=== PATIENT | male | born 1945 | race Hispanic/Latino ===

== ENCOUNTER 2018-12-09 07:28 | Observation (INO) | payer MEDICARE ==
[2018-12-09] MEDS ORDERED: ECOTRIN PO NR (07:44)
[2018-12-09] MEDS ORDERED: NACL 0.9% 500 ML 500 ML IV SCH (08:00)
[2018-12-09] MEDS ORDERED: ECOTRIN PO ONE (08:01)
[2018-12-09] MEDS ORDERED: NACL 0.9% 500 ML 500 ML ONE (08:01)
[2018-12-09 08:31] LABS: Basophils % (Auto) 0.9 % (0.0-1.8); Eosinophils # (Auto) 0.2 K/mm3 (0.0-0.4); Eosinophils % (Auto) 3.8 % (0.0-4.3); Hematocrit 39.2 % (35.5-45.6); Hemoglobin 12.9 gm/dl (11.8-15.2); Lymphocytes # (Auto) 1.8 K/mm3 (1.2-5.4); Mean Corpuscular HGB Conc 33 % (32-34); Mean Corpuscular Volume 82 fl (84-94); Monocytes # (Auto) 0.5 K/mm3 (0.0-0.8); Monocytes % (Auto) 9.3 % (0.0-7.3); Platelet Count 263 K/mm3 (140-440); Red Blood Count 4.77 M/mm3 (3.65-5.03); Red Cell Distribution Width 15.3 % (13.2-15.2)
[2018-12-09 08:54] LABS: INR 0.95 (0.87-1.13); Partial Thromboplastin Time 28.7 Sec. (24.2-36.6)
[2018-12-09] MEDS ORDERED: CALAN ONE (08:58)
[2018-12-09] MEDS ORDERED: SUBLIMAZE ONE (08:58)
[2018-12-09] MEDS ORDERED: VERSED ONE (08:58)
[2018-12-09] MEDS ORDERED: HEPARIN/NS 5000 UNIT/500ML(CATH LAB) 1,000 ML IR ONE (08:58)
[2018-12-09] MEDS ORDERED: NITROGLYCERIN SYRINGE 3 ML ONE (08:59)
[2018-12-09] MEDS ORDERED: XYLOCAINE 2% INFILTRATI ONE (08:59)
[2018-12-09 09:02] LABS: BUN/Creatinine Ratio 26; Blood Urea Nitrogen 18 mg/dL (9-20); Calcium 8.7 mg/dL (8.4-10.2); Hemolysis Index 3
[2018-12-09] MEDS: HEPARIN 10,000 UNITS/10 ML ONE ×3 (09:51→10:20)
[2018-12-09] MEDS ORDERED: EFFIENT PO ONE (10:26)
[2018-12-09] MEDS ORDERED: ALUM-MAG HYDROX-SIMETH 200-200-20MG/5ML ONE (10:27)
--- NOTE | 2018-12-09 11:30 | Cardiac Catherization Report ---
CARDIAC CATHETERIZATION REFERRING PHYSICIAN: Rodri Campos MD INDICATION FOR PROCEDURE: The patient is a very pleasant 73-year-old gentleman with recurrent chest pain, very typical features, had an unremarkable stress test, but continued to have chest pain despite antianginal medications, referred for left heart catheterization. Risks, benefits, and alternatives were explained at length prior to obtaining informed consent. PROCEDURE IN DETAIL: The patient was brought to the catheterization lab in a postabsorptive state, prepped and draped in sterile fashion. Ganga's test in right hand normal. A 2 mL of 2% lidocaine used to anesthetize the right wrist. A standard 5-Ind[place]ian hydrophilic sheath used to cannulate the right radial artery via modified Seldinger technique. All exchanges performed to exchange a J-tip guidewire. JL3.5 catheter used to engage the left main. No dampening or ventricularization. Cineangiography performed in all projections. JR4 catheter was used to cross the aortic valve under fluoroscopic guidance. Left ventriculography performed in 30 KAMARA and 30 ALEXANDREA projections via hand injections, catheter flushed. Manual pullback performed with continuous pressure monitoring. Catheter used to engage the right coronary. No dampening or vegetations. Cineangiography performed in all projections. DATA: Aortic pressure is 150/60, LV pressure is 150, LVP of 12 mmHg. Left ventriculography reveals normal systolic performance with estimated ejection fraction of 55-60%. No evidence of aortic stenosis. Normal LVEDP. The patient remained in normal sinus rhythm throughout the procedure. CORONARY ANATOMY: This is a right dominant system. No significant left main disease. Left anterior descending artery is a moderate sized vessel, courses AV groove, 25% mid LAD stenosis, intramyocardial segment in the LAD, mild periapical small vessel disease. There appears to be a second diagonal, which is a small vessel, likely a 15 vessel with 99% stenosis in it HUAN 3 flow. The right coronary is a moderate sized vessels, it is right dominant. There is an 80% hazy stenosis in the mid ST changes with ST changes with injection. At this point, given his chest pain despite antianginals with very good typical features. We will treat the diagonal with medications. I decided to perform PCI of the right coronary. An IR1 guide used to engage the right coronary without difficulty. We used an All Star wire across the lesion. We direct stented the lesion with a Resolute 3.0 x 18 drug-eluting stent with excellent angiographic results of 14 NEMESIO for 30 seconds. Next, intravascular ultrasound was performed, multiple passes were made, which revealed a well apposed and well expanded stent. Final angiogram reveals no complications. The patient is chest pain free. EKG is normalized. Significant epicardial coronary disease in this right dominant system. A. 80% hazy culprit mid LAD stenosis. Successful PCI with placement of drug-eluting stent (Lalit 3.0 x 18 with excellent final angiographic and ultrasonographic results). B. Small vessel 99% stenosis of a very small second diagonal, too small to intervene upon medical management. C. No other significant coronary disease identified. D. Normal left ventricular function, estimated ejection fraction of 55-60%. At this point, continue medical management, add Ranexa for small vessel disease. Effient, aspirin, statin therapy, risk factor modification. Results of procedure were explained to the patient and family. All questions and concerns were addressed and radial care. JOB# [id number] JEREMIAH/EDMUNDO
--- NOTE | 2018-12-09 13:51 | Short Stay Summary ---
Short Stay Documentation Date of service: 12/09/18 - History H&P: obtained from office - Allergies and Medications Current Medications: Allergies No Known Allergies Allergy (Unverified 12/09/18 07:29) Home Medications Medication Instructions Recorded Confirmed Last Taken Type Esomeprazole Magnesium [Nexium] 20 mg PO DAILY 12/09/18 12/09/18 12/08/18 History 1 tab Active Medications Aspirin (Ecotrin) 325 mg PO ONCE NR Stop: 12/09/18 16:00 Aspirin (Aspirin) 325 mg PO QDAY MICH Atorvastatin Calcium (Lipitor) 40 mg PO QHS MICH Sodium Chloride (Nacl 0.9% 500 Ml) 500 mls @ 50 mls/hr IV DIRECT MICH Stop: 12/09/18 17:59 Metoprolol Tartrate (Lopressor) 12.5 mg PO BID MICH Prasugrel (Effient) 10 mg PO QDAY MICH Ranolazine (Ranexa Er) 500 mg PO BID MICH - Brief post op/procedure progress note Date of procedure: 12/09/18 Pre-op diagnosis: chest pain, abnormal stress test Post-op diagnosis: other (CAD) Procedure: LHC with PCI - see dictated cath report Anesthesia: local Estimated blood loss: none Condition: stable - Hospital course Hospital course: Pt presented for scheduled elective LHC and subsequently underwent PCI - see dictated cath report. He was admitted for observation overnight. He remained clinically and hemodynamically stable throughout procedure and recovery and is medically stable for discharge. - Disposition Condition at discharge: Good Disposition: [id number] TO HOME OR SELFCARE - Discharge Diagnoses (1) CAD (coronary artery disease) Status: Chronic (2) Stented coronary artery Status: Chronic Short Stay Discharge Plan Activity: advance as tolerated Diet: low fat, low cholesterol, low salt Wound: open to air, keep clean and dry, per your surgeon's advice Follow up with: FOX AIKEN MD [Primary Care Provider] - 7 Days SAJI JONES MD [Staff Physician] - 7 Days ([place] office on 12/22/2018 @ 1:00PM) Prescriptions: AtorvaSTATin [Lipitor] 40 mg PO QHS #30 tablet Prasugrel [Effient] 10 mg PO QDAY #30 tablet Metoprolol [Lopressor TAB] 12.5 mg PO BID #60 tablet Ranolazine ER [Ranexa ER] 500 mg PO BID #60 tablet
[2018-12-09] MEDS: LOPRESSOR PO SCH (21:43)
[2018-12-09] MEDS: RANEXA ER PO SCH (21:46)
[2018-12-10 06:30] LABS: Basophils % (Auto) 0.5 % (0.0-1.8); Eosinophils # (Auto) 0.2 K/mm3 (0.0-0.4); Eosinophils % (Auto) 3.4 % (0.0-4.3); Hematocrit 36.7 % (35.5-45.6); Hemoglobin 12.3 gm/dl (11.8-15.2); Lymphocytes # (Auto) 2.2 K/mm3 (1.2-5.4); Lymphocytes % (Auto) 34.4 % (13.4-35.0); Mean Corpuscular HGB Conc 34 % (32-34); Mean Corpuscular Volume 82 fl (84-94); Monocytes # (Auto) 0.6 K/mm3 (0.0-0.8); Monocytes % (Auto) 9.7 % (0.0-7.3); Platelet Count 249 K/mm3 (140-440); Red Blood Count 4.47 M/mm3 (3.65-5.03)
[2018-12-10 06:56] LABS: BUN/Creatinine Ratio 23; Blood Urea Nitrogen 21 mg/dL (9-20); Calcium 8.9 mg/dL (8.4-10.2); Hemolysis Index 3
[2018-12-10 06:57] LABS: Creatine Kinase MB 1.5 ng/mL (0.0-4.0)
[2018-12-10 08:41] VITALS: BP 145/93
[2018-12-10] MEDS: RANEXA ER PO SCH (09:52)
[2018-12-10] MEDS: LOPRESSOR PO SCH (09:53)
[2018-12-10] MEDS ORDERED: EFFIENT PO SCH (10:00)
[2018-12-10] MEDS ORDERED: ASPIRIN PO SCH (10:00)
--- NOTE | 2018-12-10 10:52 | XRay Report ---
PROCEDURE: XR CHEST 1V AP TECHNIQUE: Single view chest HISTORY: post pci COMPARISONS: None FINDINGS: Atherosclerotic tortuosity aorta. Heart size normal. Moderate sized hiatal hernia. No pneumothorax. N o sizable effusion. No acute airspace disease. No acute bony abnormality. IMPRESSION: No acute pulmonary disease. Hiatal hernia.. This document is electronically signed by Catarino Yeboah MD., December 10 2018 10:49:55 AM ET
== END 2018-12-10 14:20 | disposition home or self-care (01) ==
LOC: CATHLABREC 07:28 → 4A 10:55
PROVIDERS: ADMIT Internal Medicine; ATTEND Internal Medicine
DX: I25.10 Atherosclerotic heart disease of native coronary artery without angina pectoris (principal); Z95.5 Presence of coronary angioplasty implant and graft
CPT/HCPCS: 36415; 71045; 80048; 82550; 82553; 84484; 85025; 85347; 85610; 85730; 92978; 93005; 93010; 93458; A9270; C1725; C1753; C1769; C1874; C1887; C1894; C9600; G0378; J1644; J2250; J3010; J7040; 92928; Q9967